=== PATIENT | male | born 1985 | race Caucasian/White ===

== ENCOUNTER 2020-03-01 05:41 | Inpatient (IN) | payer MEDICAID ==
[~2020-03-01] VITALS: Ht 172.7 cm; Wt 71.2 kg
[2020-03-01] MEDS ORDERED: SODIUM CHLORIDE 0.9% 1000ML BAG (SEPSIS BOLUS) IV ONE (06:45)
[2020-03-01] MEDS ORDERED: CEFTRIAXONE 1 G PREMIX 50 ML IV ONE (06:45)
[2020-03-01] MEDS ORDERED: AZITHROMYCIN 500 MG in DEXT 5% WATER 250 ML IV ONE (06:45)
[2020-03-01 08:19] LABS: BASOPHILS % 0.3 % (0.0-2.0); EOSINOPHILS % 0.3 % (0.0-5.0); HEMATOCRIT. 44.5 % (42.0-52.0); LYMPHOCYTES % 11.9 % (20.0-50.0); MEAN CORPUSCULAR HEMOGLOBIN 30.4 pg (28.0-32.0); MEAN CORPUSCULAR VOLUME 90.5 fL (80.0-94.0); MEAN PLATELET VOLUME 9.6 fl (7.4-10.4); MONOCYTES % 3.8 % (2.0-8.0); NEUTROPHILS % 83.7 % (40.0-76.0); PLATELET 222 x1000/uL (130-400); RED BLOOD CELL COUNT 4.92 mill/uL (4.7-6.1); RED CELL DISTRIBUTION WIDTH 13.7 % (11.6-14.6)
[2020-03-01 08:19] LABS: CLARITY URINE CLEAR (CLEAR); COLOR URINE YELLOW (YELLOW); KETONES URINE NEGATIVE (NEGATIVE); LEUKOCYTE ESTERASE URINE NEGATIVE (NEGATIVE); NITRITE URINE NEGATIVE (NEGATIVE); OCCULT BLOOD URINE NEGATIVE (NEGATIVE); PROTEIN URINE 2+ (NEGATIVE); SPECIFIC GRAVITY URINE 1.022 (1.005-1.030); UROBILINOGEN URINE 0.2 E.U./dL (0.2-1.0)
[2020-03-01 08:20] LABS: CHLORIDE 105 mEq/L (98-107)
[2020-03-01 08:23] LABS: ETHANOL BLOOD < 10 mg/dL; PROTHROMBIN TIME 10.4 sec (9.6-11.0)
[2020-03-01 08:38] LABS: *BENZODIAZEPINES SCREEN URINE NEGATIVE (NEGATIVE); *COCAINE SCREEN URINE NEGATIVE (NEGATIVE)
[2020-03-01 08:39] LABS: *AMPHETAMINES SCREEN URINE NEGATIVE (NEGATIVE); CANNABINOID URINE SCREEN NEGATIVE (NEGATIVE); METHADONE URINE SCREEN NEGATIVE (NEGATIVE); OPIATES URINE SCREEN NEGATIVE (NEGATIVE); PHENCYCLIDINE URINE SCREEN NEGATIVE (NEGATIVE)
[2020-03-01 08:40] LABS: *BARBITURATES SCREEN URINE NEGATIVE (NEGATIVE)
[2020-03-01] MEDS ORDERED: ONDANSETRON HCL 4MG/2ML INJ IV PRN (11:00)
[2020-03-01] MEDS ORDERED: CEFTRIAXONE 1 G PREMIX 50 ML IV SCH (11:00)
[2020-03-01] MEDS ORDERED: CLONIDINE 0.1MG TABLET PO PRN (11:00)
[2020-03-01 12:00] VITALS: BP 113/73
[2020-03-01 12:00] LABS: PHOSPHORUS 1.6 mg/dL (2.5-4.9)
[2020-03-01 12:08] LABS: C REACTIVE PROTEIN CARDIAC 6.4 mg/L (0.00-3.00)
[2020-03-01 13:24] LABS: BG BASE EXCESS -4.3 mmol/L (-2.0-2.0); BG CARBOXYHEMOGLOBIN 0.2 % (0.5-1.5); BG DEOXYHEMOGLOBIN 3.1 % (0.0-5.0); BG FRACTION INSPIRED OXYGEN 40; BG METHEMOGLOBIN 0.2 % (0.0-1.5); BG OXYGEN SATURATION 96.9 % (92.0-98.5); BG OXYHEMOGLOBIN 96.5 % (94.0-97.0); BG PCO2 39.5 mmHg (35.0-45.0); BG PH 7.344 (7.350-7.450); BG PO2 84.7 mmHg (75.0-100.0); BG SAMPLE SITE RIGHT RADIAL; BG TOTAL HEMOGLOBIN 15.9 g/dL (12.0-18.0); BG VENT MODE NASAL CANNULA
[2020-03-01 16:00] VITALS: BP 127/72
[2020-03-01] MEDS: ENOXAPARIN 40MG/0.4ML SYR SUBCUT SCH (16:15)
[2020-03-01 17:32] VITALS: BP 113/73
[2020-03-01 20:00] VITALS: BP 139/82
[2020-03-01] MEDS: ACETAMINOPHEN 325MG TABLET PO PRN (20:49)
[2020-03-01] MEDS: DIPHENHYDRAMINE 50MG/ML VIAL IV PRN (20:49)
[2020-03-02] VITALS: BP 113/66
[2020-03-02 04:00] VITALS: BP 131/83
[2020-03-02] MEDS: DIPHENHYDRAMINE 50MG/ML VIAL IV PRN (04:23)
[2020-03-02 05:46] LABS: BASOPHILS % 0.5 % (0.0-2.0); EOSINOPHILS % 1.4 % (0.0-5.0); HEMATOCRIT. 42.5 % (42.0-52.0); HEMOGLOBIN. 14.4 g/dL (14.0-18.0); LYMPHOCYTES % 20.6 % (20.0-50.0); MEAN CORPUSCULAR HEMOGLOBIN 30.7 pg (28.0-32.0); MEAN CORPUSCULAR VOLUME 90.5 fL (80.0-94.0); MONOCYTES % 5.8 % (2.0-8.0); NEUTROPHILS % 71.7 % (40.0-76.0); PLATELET 179 x1000/uL (130-400); RED BLOOD CELL COUNT 4.69 mill/uL (4.7-6.1); RED CELL DISTRIBUTION WIDTH 13.4 % (11.6-14.6)
[2020-03-02 08:00] VITALS: BP 122/74
[2020-03-02] MEDS ORDERED: CEFTRIAXONE 1,000 MG in DEXTROSE 5% WATER 50 ML IV SCH (08:00)
[2020-03-02 08:07] LABS: CHLORIDE 104 mEq/L (98-107)
[2020-03-02 08:27] LABS: LDL CHOLESTEROL 83 mg/dL (5-100)
[2020-03-02 08:28] LABS: HDL CHOLESTEROL 47 mg/dL (40-59)
[2020-03-02] MEDS ORDERED: AZITHROMYCIN 500 MG in DEXT 5% WATER 250 ML IV SCH (09:00)
[2020-03-02] MEDS: ACETAMINOPHEN 325MG TABLET PO PRN ×2 (09:04→22:18)
[2020-03-02] MEDS: ENOXAPARIN 40MG/0.4ML SYR SUBCUT SCH (11:19)
[2020-03-02] MEDS: PIPERACILLIN/TAZOBACTAM 3.375 G in DEXT 5% WATER 100 ML IV SCH ×3 (11:19→23:40)
[2020-03-02 12:00] VITALS: BP 133/81
[2020-03-02 16:00] VITALS: BP 138/89
[2020-03-02 20:00] VITALS: BP 117/78
[2020-03-03] VITALS: BP 113/68
[2020-03-03 04:00] VITALS: BP 107/63
[2020-03-03] MEDS: PIPERACILLIN/TAZOBACTAM 3.375 G in DEXT 5% WATER 100 ML IV SCH ×2 (05:23→11:36)
[2020-03-03 07:20] LABS: BASOPHILS % 0.6 % (0.0-2.0); EOSINOPHILS % 2.5 % (0.0-5.0); HEMATOCRIT. 42.9 % (42.0-52.0); HEMOGLOBIN. 14.7 g/dL (14.0-18.0); LYMPHOCYTES % 27.6 % (20.0-50.0); MEAN CORPUSCULAR HEMOGLOBIN 30.8 pg (28.0-32.0); MEAN CORPUSCULAR VOLUME 89.5 fL (80.0-94.0); MEAN PLATELET VOLUME 9.4 fl (7.4-10.4); NEUTROPHILS % 61.3 % (40.0-76.0); PLATELET 192 x1000/uL (130-400); RED BLOOD CELL COUNT 4.79 mill/uL (4.7-6.1); RED CELL DISTRIBUTION WIDTH 13.5 % (11.6-14.6)
[2020-03-03 08:00] VITALS: BP 111/79
[2020-03-03 09:28] LABS: CHLORIDE 106 mEq/L (98-107)
[2020-03-03] MEDS ORDERED: [UNRECOGNIZED DRUG - REMARK] XX SCH (10:30)
[2020-03-03] MEDS ORDERED: SODIUM CHLORIDE 0.9% 1,000 ML IV SCH (10:45)
[2020-03-03] MEDS: ENOXAPARIN 40MG/0.4ML SYR SUBCUT SCH (11:36)
[2020-03-03 12:00] VITALS: BP 122/75
[2020-03-03] MEDS ORDERED: AMOX-424 MT (13:09)
[2020-03-03] MEDS ORDERED: BENZ100C86 PO (13:09)
[2020-03-03] MEDS ORDERED: HEXY1LOZ4 MM (13:09)
[2020-03-03] MEDS ORDERED: THROAT LOZENGES-BENZOCAINE/MENTH/CETYLPYRD CL LOZENGES MM PRN (13:15)
[2020-03-03] MEDS ORDERED: BENZONATATE 100MG CAPSULE PO PRN (13:15)
[2020-03-03] MEDS ORDERED: IOHEXOL-350 100 ML BOTTLE ONE (13:37)
[2020-03-03 14:45] VITALS: BP 120/78
[2020-03-04] MEDS ORDERED: SODIUM CHLORIDE 0.9% 1,000 ML IV SCH (08:00)
== END 2020-03-03 15:00 | disposition home or self-care (01) | DRG 720 ==
LOC: ER 05:41 → EDBEDREQSVC 07:44 → EDBEDREQTM 07:44 → EDBEDREQ 07:44 → 7WST 09:45 → EDBEDREQ 09:47 → EDBEDREQTM 09:47 → ENRESERV 11:06 → 5WST 03-02 13:51
PROVIDERS: ADMIT Internal Medicine; ATTEND Internal Medicine
DX: A41.9 Sepsis, unspecified organism (principal); R65.20 Severe sepsis without septic shock; J69.0 Pneumonitis due to inhalation of food and vomit; J96.01 Acute respiratory failure with hypoxia; G92 Toxic encephalopathy; Z20.828 Contact with and (suspected) exposure to other viral communicable diseases; R04.2 Hemoptysis; F14.10 Cocaine abuse, uncomplicated; I10 Essential (primary) hypertension; R74.0 Nonspecific elevation of levels of transaminase and lactic acid dehydrogenase [LDH]; T40.5X5A Adverse effect of cocaine, initial encounter; Y92.89 Other specified places as the place of occurrence of the external cause
CPT/HCPCS: 36415; 36600; 71045; 71275; 76700; 80048; 80053; 80061; 80305; 80307; 80320; 80329; 81003; 82375; 82728; 82805; 82962; 83605; 83615; 83735; 84100; 84145; 84443; 84484; 85025; 85379; 86141; 87426; 87635; 93005; 99291; J0456; J0696; J1200; J1650; J2405; J2543; J7030; J7060; Q9967; G0480